=== PATIENT | male | born 1990 | race Caucasian/White ===

== ENCOUNTER 2022-05-11 08:16 | Emergency (ER) | payer OTHER ==
[2022-05-11 09:43] LABS: HEMOGLOBIN 12.7 gm/dl (14.0-17.5); RED BLOOD COUNT 4.65 M/UL (4.20-5.50); WHITE BLOOD COUNT 13.2 K/UL (4.5-11.0)
[2022-05-11 10:14] LABS: BUN/CREATININE RATIO 26 (0-10)
[2022-05-11] MEDS ORDERED: LACTULOSE20 GM/30 M PO (21:45)
== END 2022-05-11 12:51 | disposition left against medical advice (07) ==
LOC: ER1 08:16
PROVIDERS: Physician Assistant
DX: K80.80 Other cholelithiasis without obstruction (principal); R00.0 Tachycardia, unspecified; Z88.8 Allergy status to other drugs, medicaments and biological substances; Z20.822 Contact with and (suspected) exposure to COVID-19
CPT/HCPCS: 80053; 83690; 85025; 99284; Q9967; U0002

== ENCOUNTER 2022-05-11 13:23 | Emergency (ER) | payer OTHER ==
[2022-05-11] MEDS ORDERED: LACTULOSE20 GM/30 M PO (21:45)
== END 2022-05-11 18:09 | disposition left against medical advice (07) ==
LOC: ER1 13:23
DX: R10.9 Unspecified abdominal pain (principal)
CPT/HCPCS: 99282

== ENCOUNTER 2022-05-11 18:00 | Emergency (ER) | payer OTHER ==
[2022-05-11] MEDS ORDERED: LACTULOSE20 GM/30 M PO (21:45)
== END 2022-05-11 21:50 | disposition home or self-care (01) ==
LOC: ER1 18:00
DX: K59.00 Constipation, unspecified (principal); F17.290 Nicotine dependence, other tobacco product, uncomplicated; Z86.59 Personal history of other mental and behavioral disorders
CPT/HCPCS: 99283

== ENCOUNTER 2022-05-30 09:09 | Emergency (ER) | payer OTHER ==
[~2022-05-30 09:09] MED LIST: LACTULOSE20 GM/30 M PO
[2022-05-30] MEDS ORDERED: CLEOCIN HCL150 MG PO (09:41)
== END 2022-05-30 09:52 | disposition home or self-care (01) ==
LOC: ER1 09:09
DX: L03.114 Cellulitis of left upper limb (principal); F17.200 Nicotine dependence, unspecified, uncomplicated
CPT/HCPCS: 99283

== ENCOUNTER 2022-05-30 19:05 | Emergency (ER) | payer OTHER ==
[~2022-05-30 19:05] MED LIST changes: +CLEOCIN HCL150 MG PO
== END 2022-05-30 21:17 | disposition home or self-care (01) ==
LOC: ER1 19:05
DX: L03.113 Cellulitis of right upper limb (principal); F17.210 Nicotine dependence, cigarettes, uncomplicated
CPT/HCPCS: 99282